=== PATIENT | female | born 1950 | race African-American/Black ===

== ENCOUNTER → 2020-05-17 14:07 | Outpatient (CLI) | payer MEDICARE, SELFPAY ==
[2020-05-17 13:36] VITALS: BMI 26.4
[2020-05-17 15:16] LABS: Absolute Lymphocyte Count 3.12 X10^3/uL (0.83-4.51); Absolute Neutrophil Count 6.7 X10^3/uL (2.0-7.7); Basophil# 0.07 X10^3/uL; Basophil% 0.6 % (0-1); Eosinophil# 0.07 X10^3/uL; Eosinophils% 0.6 % (0-5); Hematocrit 42.2 % (37-47); Hemoglobin 14.7 g/dL (12.0-15.0); Lymphocyte # 3.12 X10^3/ul (4.0); Lymphocyte % 28.9 % (19-41); Mean Corp Hgb Conc 34.8 g/dL (32-36); Mean Corpuscular Hgb 31.4 pg (27.0-32.0); Mean Corpuscular Volume 90.2 fL (81-99); Monocyte# 0.83 X10^3/uL; Monocyte% 7.7 % (0-10); NRBC Flagged by Analyzer 0 % (0-5); Neutrophil # 6.66 X10^3/uL (2.7-7.7); Neutrophil % 61.7 % (47-70); Platelet Count 299 K/mm3 (150-450); RBC Distribution Width CV 14.5 % (11.6-14.6); RBC Distribution Width SD 47.8 fl (35.1-43.9); Red Blood Count 4.68 M/mm3 (4.2-5.4); White Blood Count 10.8 K/mm3 (4.4-11.0)
[2020-05-17 16:00] LABS: ALB/GLOB Ratio 0.8 RATIO (0.9-2.4); AST(SGOT) 12 U/L (15-37); Alanine Aminotransfer ALT/SGPT 18 U/L (13-56); Albumin, Serum 3.9 g/dL (3.2-5.0); Alkaline Phosphatase 103 U/L (45-117); Anion Gap 7 (5-15); BUN 11 mg/dL (7-18); BUN/Creat Ratio 9.1 RATIO (10-20); Calcium,Total 9.4 mg/dL (8.5-10.1); Chloride 110 mmol/L (98-107); Cholesterol 255 mg/dL (200); Creatinine, Serum 1.21 mg/dL (0.55-1.02); EST Glomerular Filtration Rate 47 mL/min (>60); Est Glom Filt Rate - Afr Amer 57 mL/min (>60); Globulin 4.8 g/dL (2.2-4.2); Glucose 96 mg/dL (74-106); High Density Lipoprotein 44 mg/dL; Potassium 3.2 mmol/L (3.5-5.1); Protein, Total 8.7 g/dL (6.4-8.2); Sodium Level 142 mmol/L (136-145); Triglycerides 144 mg/dL; Very Low Density Lipoprotein 29 mg/dL (5-40)
== END ==
PROVIDERS: PCP Internal Medicine; Referring Provider Internal Medicine; Visit Provider Internal Medicine
DX: I10 Essential (primary) hypertension (principal)
CPT/HCPCS: 36415; 80053; 80061; 85025

== ENCOUNTER → 2020-06-14 13:48 | Outpatient (CLI) | payer MEDICARE, SELFPAY ==
[2020-06-14 13:21] VITALS: BMI 27.1
[2020-06-14 15:43] LABS: Anion Gap 7 (5-15); BUN 7 mg/dL (7-18); BUN/Creat Ratio 7.9 RATIO (10-20); Chloride 106 mmol/L (98-107); Creatinine, Serum 0.89 mg/dL (0.55-1.02); EST Glomerular Filtration Rate 67 mL/min (>60); Est Glom Filt Rate - Afr Amer 81 mL/min (>60); Glucose 82 mg/dL (74-106); Potassium 3.7 mmol/L (3.5-5.1); Sodium Level 141 mmol/L (136-145); T4 Free Direct 0.99 ng/dL (0.76-1.46)
== END ==
PROVIDERS: PCP Internal Medicine; Referring Provider Internal Medicine; Visit Provider Internal Medicine
DX: I10 Essential (primary) hypertension (principal); E87.6 Hypokalemia; E03.9 Hypothyroidism, unspecified
CPT/HCPCS: 36415; 80048; 84439; 84443

== ENCOUNTER 2020-07-13 09:35 | Inpatient (IN) | payer MEDICARE, MEDICAID, SELFPAY ==
[2020-07-13] VITALS (12 sets, daily range): BP systolic 121–160; BP diastolic 70–89; PULSE 64–81; RESP 15–22; TEMP 35.9–36.7; O2SAT 99–100; BMI 28.0; BMI 27.7; BMI 27.8
--- NOTE | 2020-07-13 09:46 | EKG12_ITS ---
Test Reason : NEURO Blood Pressure : / mmHG Vent. Rate : 065 BPM Atrial Rate : 065 BPM P-R Int : 156 ms QRS Dur : 064 ms QT Int : 434 ms P-R-T Axes : 060 046 047 degrees QTc Int : 451 ms Normal sinus rhythm Normal ECG Confirmed by CORINNE IVAN, DIONICIO ([id number]), industrial editor SHANI AMIN ([id number]) on 07/17/2020 8:28:35 AM Referred By: Confirmed By:DIONICIO SUN MD
--- NOTE | 2020-07-13 09:46 | CT_ITS ---
STUDY: CT BRAIN WITHOUT CONTRAST REASON FOR EXAM: Female, 69 years old. Altered mental status. Stroke alert. RADIATION DOSAGE (If Supplied By Facility): CTDIvol = ( 45 ) mGy, DLP = ( 813 ) mGycm TECHNIQUE: Transaxial CT imaging of the brain was performed without administration of intravenous contrast material. Individualized dose optimization techniques were used for this CT. COMPARISON: None. FINDINGS: There is no acute bleed or infarct. There are mild chronic ischemic changes. The ventricles are normal in configuration. There is no hydrocephalus. The visualized paranasal sinuses are clear. The mastoid air cells are well aerated. There is no skull fracture. CT/STROKE Brain/Head without Cont IMPRESSION: No acute intracranial abnormality. Mild chronic ischemic change. N.B. : The above information has been verbally conveyed by Nithin Lagos MD to MD Junaid, on 07/13/2020 11:01:00 (ET). Electronically Signed: Nithin Lagos MD at 11:01 EDT Tel , Service support ,
--- NOTE | 2020-07-13 09:48 | ED.DCSUM_ITS ---
History of Present Illness Chief Complaint: Neuro S/Sx Informant: Patient Onset: Weeks Context: Sudden Onset Timing: Continuous Quality and Location: Left Facial Droop, Left Face Parasthesia, Slurred Speech Onset: Approximately 1 week ago Current Severity: Mild Maximum Severity: Mild Worsened by: Nothing Relieved by: Nothing Associated Symptoms: Negative for: Headache, Nausea, Vomiting, Chest Pain Narrative: Patient is a 69-year-old woman with history of hypertension, hypercholesterolemia, and thyroid disease who presents because of persistent left-sided facial numbness, slurred speech and facial droop. She denies paresthesia, anesthesia or motor weakness upper or lower extremities. She denies headache. She denies double vision or blurred vision. She denies history of trauma. She is not on an anticoagulant. She denies cardiac, respiratory, GI or urologic symptoms. Prior similar symptoms: No Recent Illness/Hospitalization: No - Past Medical History (1) History of hypertension Status: Acute (2) History of hypercholesterolemia Status: Acute (3) History of thyroid disease Status: Acute Past Medical History - Allergies and Home Meds Allergies/Adverse Reactions: Allergies naproxen [From Anaprox] Allergy (Verified 07/13/20 09:37) Hives SULFUR Allergy (Uncoded 07/13/20 09:37) Hives Prior records reviewed: Yes Surgical History: noncontributory Lives: Alone Smoking Status: Current every day smoker Alcohol: None Drugs: None Review of Systems General: Denies: Chills, Fever, Malaise Eyes: Denies: Visual changes - bilaterally, Blurred Vision - bilaterally, Diplopia ENT: Denies: Bilateral ear pain, Rhinorrhea, Sore throat Cardiovascular: Denies: Chest pain, Palpitations Respiratory: Denies: Dyspnea, Cough, Dyspnea on exertion Gastrointestinal: Denies: Abdominal pain, Vomiting Genitourinary: Denies: Dysuria, Hematuria, Frequency Musculoskeletal: Denies: Myalgias, Arthralgias, Neck pain, Back pain, Swelling, Extremity Pain, -, - Skin: Denies: Rash, Wounds Neurological: Reports: Weakness, - - Slurred speech Psych: Denies: Depression, Anxiety Endocrine: Denies: Polyuria, Polydipsia Hematologic: Denies: Easy bruising, Easy bleeding Allergy: Denies: Uticaria, Swelling of the mouth, Swelling of the tongue STROKE Vital Signs/Narrative: Vital Signs Temp Pulse Resp BP Pulse Ox 04/24/21 09:37 97 F L 74 16 137/72 H 99 Inital Vital Signs reviewed: Yes - NIHSS Initial 1a Level of Consciousness: 0 1b LOC Questions (Score 2 if aphasic/stupor): 0 1c LOC Commands (Only score 1st attempt): 0 2 Best Gaze (If aphasic, use reflexive mvmts.): 0 3 Visual: 0 4 Facial Palsy: 1 5 Motor Arm Right (UN = amputation/fusion): 0 5 Motor Arm Left: 1 6 Motor Leg Right: 0 6 Motor Leg Left: 1 7 Limb ataxia (Only + if out of proportion): 0 8 Sensory (Aphasia/stupor=0 or 1, coma=2): 0 9 Best Language: 0 10 Dysarthria (mute, coma=2, intubated=UN): 1 11 Extinction and Inattention (only scored if +): 0 Total Score: 4 General: Well nourished, Well developed Head: Normocephalic, Atraumatic Eyes: Perrl, EOMI, - - Is no central nystagmus and there is no APD.. Negative for: Pale conjunctiva, Scleral icterus ENT: Moist mucous membranes, No rhinorrhea Neck: Supple, Nontender, No lymphadenopathy, No JVD Cardiovascular: Regular rate, Regular rhythm, No murmurs, Normal S1, Normal S2 Respiratory: No distress, CTA bilaterally, Chest nontender Abdomen: Soft, Nontender, Nondistended, Normal bowel sounds Rectal: Deferred Back: Nontender, Normal Inspection Extremities: Nontender, No edema Skin: Normal color, No rash, No Trauma. Negative for: Cyanosis, Diaphoresis, Jaundice Neurological: Alert, Oriented x3, Normal Sensation. Negative for: Cranial nerves II-XII grossly intact, Normal Strength Psychological: Normal affect Diagnostic/Tx/Re-eval Impressions Brain CT 07/13/20 09:46 IMPRESSION: No acute intracranial abnormality. Mild chronic ischemic change. N.B. : The above information has been verbally conveyed by Nithin Lagos MD to MD Junaid, on 07/13/2020 11:01:00 (ET). Electronically Signed: Nithin Lagos MD at 11:01 EDT Tel , Service support , ADDENDUM: 07/13/20 1108 IMPRESSION: No acute intracranial abnormality. Mild chronic ischemic change. N.B. : The above information has been verbally conveyed by Nithin Lagos MD to MD Junaid, on 07/13/2020 11:01:00 (ET). Electronically Signed: Nithin Lagos MD at 11:01 EDT Tel , Service support , 07/13/20 09:46 STROKE Brain/Head without Cont [CT] Stat Laboratory Results 07/13/20 07/13/20 07/13/20 09:46 10:25 10:25 WBC 8.3 RBC 3.96 L Hgb 12.5 Hct 37.1 MCV 93.7 MCH 31.6 MCHC 33.7 RDW Std Deviation 52.8 H RDW Coeff of [place] 15.4 H Plt Count 253 MPV 10.5 Immature Gran % (Auto) 0.600 Neut % (Auto) 56.2 Lymph % (Auto) 30.3 [place] % (Auto) 8.6 Eos % (Auto) 3.5 Baso % (Auto) 0.8 Absolute Neuts (auto) 4.7 Absolute Lymphs (auto) 2.51 Nucleated RBC % 0 PT 12.6 INR 1.0 APTT 30.7 Sodium Potassium Chloride Carbon Dioxide Anion Gap BUN Creatinine Estim Creat Clear Calc Est GFR (MDRD) Af Amer Est GFR (MDRD) Non-Af BUN/Creatinine Ratio Glucose Calcium Troponin I POC Glucose 94 07/13/20 10:25 WBC RBC Hgb Hct MCV MCH MCHC RDW Std Deviation RDW Coeff of [place] Plt Count MPV Immature Gran % (Auto) Neut % (Auto) Lymph % (Auto) Daw[place] % (Auto) Eos % (Auto) Baso % (Auto) Absolute Neuts (auto) Absolute Lymphs (auto) Nucleated RBC % PT INR APTT Sodium 138 Potassium 4.2 Chloride 106 Carbon Dioxide 28.0 Anion Gap 4 L BUN 11 Creatinine 0.93 Estim Creat Clear Calc 54.20 Est GFR (MDRD) Af Amer 77 Est GFR (MDRD) Non-Af 64 BUN/Creatinine Ratio 11.8 Glucose 84 Calcium 8.6 Troponin I < 0.015 POC Glucose Laboratory results are unremarkable. CT reveals small vessel disease. Patient will require admission for work-up of stroke. - EKG Initial EKG Interpretation: Sinus Rhythm - The EKG is normal with a normal sinus rhythm and a ventricular rate of 65. FL interval is 156 ms. QS duration is 64 ms. QT duration 434 ms and the axis is normal. - Medical Decision Making Stroke Team Activated: No - Some started approximately 1 week ago Reviewed Inclusion/Exclusion criteria: No - Patient outside the window Was Patient considered for Endovascular Intervention?: No IV Alteplase (t-PA) Administered: No Not given: Patient refusal: No Presents with symptoms consistent right hemispheric stroke. Stroke work-up was initiated. ED Disposition - Plan for ED Patient: Disposition: Acute Care Hospital [facility] Diagnosis: CVA (cerebral vascular accident), History of hypercholesterolemia, History of hypertension, History of thyroid disease
[2020-07-13 09:51] LABS: Bedside Glucose 94 mg/dL (70-110)
[2020-07-13 10:55] LABS: Absolute Lymphocyte Count 2.51 X10^3/uL (0.83-4.51); Absolute Neutrophil Count 4.7 X10^3/uL (2.0-7.7); Basophil# 0.07 X10^3/uL; Basophil% 0.8 % (0-1); Eosinophil# 0.29 X10^3/uL; Eosinophils% 3.5 % (0-5); Hematocrit 37.1 % (37-47); Hemoglobin 12.5 g/dL (12.0-15.0); Lymphocyte # 2.51 X10^3/ul (0.83-4.51); Lymphocyte % 30.3 % (19-41); Mean Corp Hgb Conc 33.7 g/dL (32-36); Mean Corpuscular Hgb 31.6 pg (27.0-32.0); Mean Corpuscular Volume 93.7 fL (81-99); Mean Platelet Vol. 10.5 fl (6.2-12.0); Monocyte# 0.71 X10^3/uL; Monocyte% 8.6 % (0-10); NRBC Flagged by Analyzer 0 % (0-5); Neutrophil # 4.65 X10^3/uL (2.7-7.7); Neutrophil % 56.2 % (47-70); Platelet Count 253 K/mm3 (150-450); RBC Distribution Width CV 15.4 % (11.6-14.6); RBC Distribution Width SD 52.8 fl (35.1-43.9); Red Blood Count 3.96 M/mm3 (4.2-5.4); White Blood Count 8.3 K/mm3 (4.4-11.0)
[2020-07-13 11:05] LABS: Prothrombin Time (Protime)PT. 12.6 SECONDS (11.7-14.9)
[2020-07-13 11:06] LABS: Partial Thromboplast Time 30.7 Seconds (24.1-36.2)
[2020-07-13 11:12] LABS: Anion Gap 4 (5-15); BUN 11 mg/dL (7-18); BUN/Creat Ratio 11.8 RATIO (10-20); Calcium,Total 8.6 mg/dL (8.5-10.1); Chloride 106 mmol/L (98-107); Creatinine, Serum 0.93 mg/dL (0.55-1.02); EST Glomerular Filtration Rate 64 mL/min (>60); Est Glom Filt Rate - Afr Amer 77 mL/min (>60); Glucose 84 mg/dL (74-106); Potassium 4.2 mmol/L (3.5-5.1); Sodium Level 138 mmol/L (136-145)
--- NOTE | 2020-07-13 11:59 | PCM.HP.STD ---
Problem List (1) Anxiety and depression Status: Chronic (2) History of hypertension Status: Chronic (3) History of hypercholesterolemia Status: Chronic (4) History of thyroid disease Status: Chronic (5) CVA (cerebral vascular accident) Status: Acute History of Present Illness Date of Admission: 07/13/20 Chief Complaint: Slurred speech left-sided facial droop and numbness for 1 week The patient is a 69 year old F with history of hypertension and other comorbidities as mentioned above came to ER for slurred speech, left-sided facial numbness for 1 week. Patient states she also had difficulty in reading and writing, difficulty in recall, expression of his speech. Her speech is fragmented. She was also confused sometimes in last 1 week and could not know what to do. Denies any focal weakness, change in sensation in extremities, dysphagia, loss of vision. Triage vitals in normal limit. EKG in ER shows normal sinus rhythm at 65 bpm, QTC [address] head done in ER shows no acute intracranial abnormality. Past Medical History Past Medical History (Chronic Problems): Chronic Problems History of hypertension (Chronic) History of hypercholesterolemia (Chronic) History of thyroid disease (Chronic) Anxiety and depression (Chronic) Allergies naproxen [From Anaprox] Allergy (Verified 07/13/20 09:37) Hives SULFUR Allergy (Uncoded 07/13/20 09:37) Hives Home Medications: Ambulatory Orders Medication Instructions Recorded Amlodipine [Norvasc] 5 mg PO DAILY 07/13/20 Aripiprazole 5 mg PO DAILY 07/13/20 Atorvastatin Calcium 40 mg PO DAILY 07/13/20 Oxybutynin Chloride [Ditropan Xl] 10 mg PO DAILY 07/13/20 Potassium Chloride 20 meq PO BID 07/13/20 Sertraline HCl 100 mg PO DAILY 07/13/20 traZODone [Desyrel] 100 mg PO QHS 07/13/20 Surgical History: noncontributory Lives: Alone Smoking Status: Current every day smoker Alcohol: None Drugs: None - *Family History Paternal History Items: Hypertension Review of Systems Constitutional: Denies: Chills, Fever, Weight Change HEENT: Denies: Head Aches, Sinus Congestion, Sinus Drainage Cardiovascular: Denies: Chest Pain, Palpitations Respiratory: Denies: Cough, Shortness of breath at rest, Sputum production Gastrointestinal: Denies: Abdominal Pain, Nausea, Vomiting Genitourinary: Denies: Dysuria, Frequency, Hesitancy, Retention, Urgency Musculoskeletal: Denies: Joint Pain, Joint Tenderness Skin: Denies: Rash, Wounds Neurological: Reports: Change in Speech, Slurred speech. Denies: Focal weakness, Numbness, Tingling Psychiatric: Reports: Anxiety, Depression. Denies: Homicidal Ideations, Suicidal Ideations Hematologic/ Lymphatic: Denies: Easy Bruising, Easy Bleeding VTE Information - Inpt Only VTE Present on Admission: No VTE Mechan Device Prophylaxis: None VTE Pharm Prophylaxis ordered?: Yes Patient Problems: Active and Suspected Problems CVA (cerebral vascular accident) (Acute) Objective: General: Alert, Oriented x3, Cooperative HEENT: Atraumatic, PERRLA, EOMI, Normocephalic. No peripheral loss of vision on visual confrontation test Oral: No Gingival or Mucosal Lesions/ Ulcerations Neck: Supple, No JVD, Negative Carotid Bruits Lungs: Air entry equal in bilateral lung bases. No crepitation/rhonchi Cardiovascular: Regular rate, Regular Rhythm, Normal S1, Normal S2, No murmurs Abdomen: Bowel Sounds Present, Soft, Non Tender, Non-Distended : No renal angle tenderness. No suprapubic tenderness. Extremities: No edema, Capillary Refill Less than 3 Seconds Skin: No rashes, No breakdown Musculoskeletal: Bilateral knee arthritis. No Tenderness to Palpation of Joints or Extremities Neurological: NIH 2, left facial paralysis and mild to moderate dysarthria. Muscle strength 5/5 at major joints. Gross sensation equal and symmetrical on both sides. Cerebellar signs negative. Psych/Mental Status: Normal Affect, Appropriate. - Physical Exam Vitals/I&O's: Vital Signs Temp Pulse Resp BP Pulse Ox 97 F L 79 18 129/74 H 99 07/13/20 09:37 07/13/20 11:22 07/13/20 11:22 07/13/20 11:22 07/13/20 11:22 Oxygen Delivery Method Room Air Weight: 173 lb 15.115 oz Body Mass Index (BMI) 28.0 Finger Stick Blood Glucose 94 Laboratory Results 07/13/20 09:46: POC Glucose 94 07/13/20 10:25: WBC 8.3, RBC 3.96 L, Hgb 12.5, Hct 37.1, MCV 93.7, MCH 31.6, MCHC 33.7, RDW Std Deviation 52.8 H, RDW Coeff of [place] 15.4 H, Plt Count 253, MPV 10.5, Immature Gran % (Auto) 0.600, Neut % (Auto) 56.2, Lymph % (Auto) 30.3, [place] % (Auto) 8.6, Eos % (Auto) 3.5, Baso % (Auto) 0.8, Absolute Neuts (auto) 4.7, Absolute Lymphs (auto) 2.51, Nucleated RBC % 0 07/13/20 10:25: PT 12.6, INR 1.0, APTT 30.7 07/13/20 10:25: Sodium 138, Potassium 4.2, Chloride 106, Carbon Dioxide 28.0, Anion Gap 4 L, BUN 11, Creatinine 0.93, Estim Creat Clear Calc 54.20, Est GFR (MDRD) Af Amer 77, Est GFR (MDRD) Non-Af 64, BUN/Creatinine Ratio 11.8, Glucose 84, Calcium 8.6, Troponin I < 0.015 Current Medications Labetalol HCl (Labetalol (Prefilled) 20 Mg/4 Ml) 20 mg IV X1 PRN PRN Reason: BLOOD PRESSURE Assessment/Plan All Active Problems CVA (cerebral vascular accident) (Acute) The patient is a 69 year old F with history of hypertension and other comorbidities as mentioned above came to ER for slurred speech, left-sided facial numbness for 1 week. EKG in ER shows normal sinus rhythm at 65 bpm, QTC [address] head done in ER shows no acute intracranial abnormality. 1. Subacute mostly left sided CVA: Patient is being admitted in PCU. Standard stroke protocol with MRI brain, CT angiogram head and neck and echo. PT, OT and speech evaluation and serial NIH stroke scale. BP and glucose control as per stroke guidelines. After work-up is done, will get neuro consult. On aspirin and a statin. Glucose in normal limit. Fasting profile, TSH and A1c tomorrow a.m. 2. Hypertension: Blood pressure is controlled. Continue Norvasc. 3. Dyslipidemia: Atorvastatin increased to 80 mg daily. 4. History of thyroid disease: Not on thyroid supplement. As mentioned above 5. Anxiety and depression: Patient on omeprazole, sertraline trazodone Continued 6. Chronic urine incontinence: Patient on oxybutynin continued VTE prophylaxis: Lovenox 40 mg subcu daily. Living will/advanced directive/end of life care: Patient does not have living will or advanced directive. Her son is power of station mechanic helper for health. After discussion of benefits/risks procedures involved with full code, DNR CC arrest and DNR CC, the patient opted for full code. Patient does want artificial life support including intubation, tube feed, ventilator and/chest compression, central venous catheter, vasopressor and DC shock if needed Total time spent in [id number] encounter in discussion of advanced directive 16 minutes. Inpatient E&M: 59960 Init Hosp L3 Procedures: 64935 Advncd Care Plan 30 Min
--- NOTE | 2020-07-13 13:08 | CT_ITS ---
We are attempting to reach an attending provider to discuss findings. An addendum with communication details will be sent when the communication is complete. STUDY: CTA HEAD AND NECK WITH CONTRAST REASON FOR EXAM: Female, 69 years old. Neuro deficit, acute, stroke suspected No further history or location of neural deficit provided. RADIATION DOSAGE (If Supplied By Facility): CTDIvol = ( 19.90 ) mGy, DLP = ( 689.18 ) mGycm TECHNIQUE: CT angiography was performed with a multi-detector CT scanner. Data acquisition was obtained from the skull base through the vertex following intravenous administration of IV 100mL [id number]-[id number]. MIP images were reconstructed from the axial data set. Post-processing of the angiographic images was performed, with multiplanar reformation and 3D reconstruction. Individualized dose optimization techniques were used for this CT. COMPARISON: CT scan head July 14, 2019 FINDINGS: Normal bilateral petrous carotid arteries. There is calcified plaque formation of the right cavernous carotid artery, with a mild stenosis (less than 50%). There is calcified plaque formation of the left cavernous carotid artery, with a mild stenosis (less than 50%). Normal right A1 segments of the anterior cerebral artery. Normal left A1 segments of the anterior cerebral artery. Normal intact anterior communicating artery (ACOM). Normal bilateral A2 segments of the anterior cerebral arteries. Normal right M1 and M2 segments of the middle cerebral arteries, with a normal M1 bifurcation. There is a mild to moderate narrowing of the left side into segments compared to the left. There is also a narrowed appearance of the superior branch of the left into. There is non-visualization of the right posterior communicating artery (PCOM). May be a subtle hypoplastic left-sided P-comm. Normal bilateral vertebral arteries. Normal basilar artery with a normal basilar bifurcation. The visualized bilateral superior cerebellar (SCA) arteries are normal. Normal bilateral P1, P2 and visualized P3 segments of the posterior cerebral arteries. There is no demonstrated aneurysm of the [place]. There is mild atrophy chronic involutional change. AORTIC ARCH: There is partial calcification of the aortic arch. Normal origins of the brachiocephalic, left common carotid, and left subclavian arteries. RIGHT CAROTID ARTERIES: There is atherosclerotic tortuous elongation of the right common carotid artery. There is visualized plaque formation. There is less than 50% stenosis of the right internal carotid artery at its origin. There is moderate atherosclerotic plaque formation of the origin of the right internal carotid artery with an estimated stenosis of 50-69% stenosis. Normal visualized cervical portion of the right internal carotid artery. Normal origin of the right external carotid artery (ECA). LEFT CAROTID ARTERIES: There is atherosclerotic tortuous elongation of the left common carotid artery. There is mild atherosclerotic plaque formation with minimal narrowing of the left carotid bulb. There is mild atherosclerotic plaque formation of the origin of the left internal carotid artery with less than 50% cross sectional diameter stenosis. Normal visualized cervical portion of the left internal carotid artery. Normal origin of the left external carotid artery (ECA). VERTEBRAL ARTERIES: Normal bilateral vertebral arteries. There is mild inhomogeneity of the mid right thyroid. There is degenerative change within the cervical spine. There is visualized poor dentition with multiple periodontal abscesses. CT/STROKE CTA Head AND Neck W/Con IMPRESSION: Less than 50% stenosis of the bilateral internal carotid arteries. There is atherosclerotic disease of the visualized arch of the aorta. Mildly inhomogeneous right thyroid recommend follow-up ultrasound. There is subtle mild narrowing of the left side M2 segment compared to the right suggesting mild to moderate stenosis. Could consider follow-up MRI MRA for further evaluation. Electronically Signed: Brunilda Mcneal MD at 15:00 EDT Tel , Service support ,
[2020-07-13 13:18] LABS: Magnesium 2.1 mg/dL (1.6-2.6)
[2020-07-13] MEDS: 0.9% Normal Saline 1,000 ML 75 ML IV (14:56)
[2020-07-13] MEDS: Enoxaparin 40 MG/0.4 ML Syringe SC (14:59)
[2020-07-13] MEDS: Aspirin 81 MG TAB.CHEW PO (14:59)
[2020-07-13] MEDS: Atorvastatin Calcium 80 MG Tablet PO (21:30)
[2020-07-14] VITALS (9 sets, daily range): BP systolic 143–149; BP diastolic 74–86; PULSE 62–76; RESP 15–18; TEMP 36.2–36.6; O2SAT 97–100
[2020-07-14 05:51] LABS: Absolute Lymphocyte Count 2.78 X10^3/uL (0.83-4.51); Absolute Neutrophil Count 4.3 X10^3/uL (2.0-7.7); Basophil# 0.06 X10^3/uL; Basophil% 0.7 % (0-1); Eosinophils% 3.7 % (0-5); Hematocrit 38.1 % (37-47); Lymphocyte # 2.78 X10^3/ul (0.83-4.51); Lymphocyte % 34.2 % (19-41); Mean Corp Hgb Conc 34.1 g/dL (32-36); Mean Corpuscular Hgb 31.1 pg (27.0-32.0); Mean Corpuscular Volume 91.1 fL (81-99); Mean Platelet Vol. 10.1 fl (6.2-12.0); Monocyte# 0.63 X10^3/uL; Monocyte% 7.7 % (0-10); NRBC Flagged by Analyzer 0 % (0-5); Neutrophil # 4.33 X10^3/uL (2.7-7.7); Neutrophil % 53.3 % (47-70); Platelet Count 248 K/mm3 (150-450); RBC Distribution Width CV 14.7 % (11.6-14.6); RBC Distribution Width SD 49.2 fl (35.1-43.9); Red Blood Count 4.18 M/mm3 (4.2-5.4); White Blood Count 8.1 K/mm3 (4.4-11.0)
[2020-07-14 06:17] LABS: Cholesterol 160 mg/dL (200); High Density Lipoprotein 52 mg/dL; Thyroid Stim Hormone (TSH) 3.83 uIU/mL (0.358-3.74); Triglycerides 102 mg/dL; Very Low Density Lipoprotein 20 mg/dL (5-40)
--- NOTE | 2020-07-14 08:00 | MRI_ITS ---
STUDY: MRI BRAIN WITHOUT CONTRAST REASON FOR EXAM: Female, 69 years old. Stroke, slurred speech -- confusion, facial droop, left side TECHNIQUE: Standardized multiplanar fat and water weighted pulse sequences were obtained. COMPARISON: CT head without contrast 07/13/2020. FINDINGS: No diffusion restriction throughout the brain parenchyma. No focal signal abnormalities throughout the brain parenchyma in all of the pulse sequences. Normal size of the ventricles and extra-axial spaces for the patient''s age. Normal white matter tracts of the supratentorial brain. Normal bilateral basal ganglia. Normal thalami. There is no extra-axial fluid accumulation. Normal flow voids within the major intracranial circulation suggesting patency by spin echo criteria. Normal sella turcica, pituitary gland, infundibular stalk, optic chiasm and hypothalamus. Normal tectal plate and pineal gland. Normal midbrain, jean carlos and medulla. Normal cerebellum. Normal basal cisterns. Normal bilateral temporal bones. Normal bilateral internal auditory canals. No demonstrated orbital abnormality, within the constraints of a routine brain study. Normal visualized paranasal sinuses. Normal calvarium and skull base. Normal visualized soft tissue structures. Normal visualized upper cervical spine. MRI/Brain without Contrast IMPRESSION: Normal unenhanced MRI of the brain. Electronically Signed: Arun Neely MD at 10:33 EDT , Service support ,
[2020-07-14] MEDS: Enoxaparin 40 MG/0.4 ML Syringe SC (08:12)
[2020-07-14] MEDS: Aspirin 81 MG TAB.CHEW PO (08:12)
[2020-07-14] MEDS: Sertraline 100 MG Tablet PO (08:12)
[2020-07-14] MEDS: amLODIPine 5 MG Tablet PO (08:12)
[2020-07-14] MEDS: Tolterodine Tartrate 2 MG CAP.SA PO (08:12)
[2020-07-14] MEDS: ARIPiprazole 5 MG Tablet PO (08:12)
[2020-07-14] MEDS: Potassium Chloride Oral Tablet 20 MEQ PO (08:12)
[2020-07-14] MEDS: Clopidogrel Bisulfate 75 MG Tablet PO (08:13)
[2020-07-14 08:30] LABS: Hemoglobin A1c 5.3 % (3.8-5.6)
--- NOTE | 2020-07-14 09:54 | TELEMED_ITS ---
[facility] has confirmed receipt of a request for visit. This document confirms receipt of the order initiating the consult. To find the results of the consultation, please view the patient's reports for the scanned Telemed Consult.
--- NOTE | 2020-07-14 11:34 | DCINST_ITS ---
- Discharge Diagnoses Current Active Problems: Current Active and Chronic Problems History of hypertension (Chronic) History of hypercholesterolemia (Chronic) History of thyroid disease (Chronic) CVA (cerebral vascular accident) (Acute) Anxiety and depression (Chronic) You will use the following diet at home:: Cardiac Your food should be the consistency of: Regular Discharge Activity: May Not Drive Call your doctor if you observe: Fever of 101 or Higher, Numbness or Tingling, Change in Color, Inability to urinate, Inability to have a bowel movement, Using more than one pad per hour, Shortness of breath, Dizziness, Fainting spells, Swelling in the ankles, Chest pain, Prolonged hiccoughing, Increased palpitations (irregular heartbeat), Calf discomfort, Uncontrolled pain Allergies/Adverse Reactions: Allergies naproxen [From Anaprox] Allergy (Verified 07/13/20 09:37) Hives SULFUR Allergy (Uncoded 07/13/20 09:37) Hives Medications to take at Discharge Amlodipine [Norvasc] 5 mg PO DAILY 07/13/20 Aripiprazole 5 mg PO DAILY 07/13/20 Atorvastatin Calcium 40 mg PO DAILY 07/13/20 Oxybutynin Chloride [Ditropan Xl] 10 mg PO DAILY 07/13/20 Sertraline HCl 100 mg PO DAILY 07/13/20 traZODone [Desyrel] 100 mg PO QHS 07/13/20 Aspirin [Aspirin, Baby] 81 mg PO DAILY@0800 #30 tab.chew 07/14/20 The following prescriptions were given: Aspirin [Aspirin, Baby] 81 mg PO DAILY@0800 #30 tab.chew Transmission Status: Pending to [facility] [facility] Primary Care Physician: Grace Ybarra MD [Primary Care Provider] - Please follow up with your Primary Care Physician in: in 2-3 week Test Results: Test results from this visit will be discussed in further detail at your follow- up appointment, if applicable. Please Follow Up With: Gama Leal MD When: in 2 weeks
--- NOTE | 2020-07-14 11:36 | PCM.DC.SUM ---
Discharge Date and Diagnosis - Problem List Patient Problems: Active and Suspected Problems CVA (cerebral vascular accident) (Acute) Date of Admission: 07/13/20 Date of Discharge: 07/14/20 - Primary Discharge Diagnosis Acute Problems: Active Problems CVA (cerebral vascular accident) (Acute) - Secondary Discharge Diagnosis Chronic Problems: Chronic Problems History of hypertension (Chronic) History of hypercholesterolemia (Chronic) History of thyroid disease (Chronic) Anxiety and depression (Chronic) Hospital Course and Treatment Imaging Results: 07/14/20 08:00 Brain without Contrast [MRI] Routine Summary of Care Provided: The patient is a 69 year old F with history of hypertension admitted for slurred speech, left-sided facial numbness for about 1 week.EKG in ER shows normal sinus rhythm at 65 bpm, QTC [address] head done in ER shows no acute intracranial abnormality. 1. CVA ruled out. No acute stroke or CVA.: Patient is being admitted in PCU. MRI brain unenhanced reported normal. CTA head and neck shows less than 50% stenosis of bilateral ICA. Basilar cellulitis is a neurologist believes no acute stroke or CVA. Advised to continue with the statin. Patient reported normal limits. TSH 3.83, normal range, UNL less than 4.5. Free T4 1.04. A1c 5.3. Glucose normal. Patient acute change in speech or confusion prior related to antipsychotic medications. 2. Hypertension: Blood pressure is controlled in acceptable range as per her age. Continue Norvasc. 3. Dyslipidemia: Continue atorvastatin 40 g daily. 4. History of thyroid disease: Not on thyroid supplement. As mentioned above 5. Anxiety and depression: Patient on omeprazole, sertraline trazodone Continued 6. Chronic urine incontinence: Patient on oxybutynin continued VTE prophylaxis: Lovenox 40 mg subcu daily. Discharge medication reconciliation done. Discharge follow-up instructions completed. Discharge process discussed with the patient and all questions were answered to patient's satisfaction. Discharge process discussed with patient son present in the room advised follow-up with a neurologist. Total time spent, exact 35 minutes on discharge meds reconciliation, examination, coordination of care with nurses and ancillary staff, review of imaging and blood test and discussion with the patient on follow-up instructions Patient was admitted as inpatient but was discharged because of sooner recovery than expected at time of admission. Clinical Impression(s) from Imaging Studies Brain CT 07/13/20 09:46 IMPRESSION: No acute intracranial abnormality. Mild chronic ischemic change. Head/Neck CTA 07/13/20 13:08 IMPRESSION: Less than 50% stenosis of the bilateral internal carotid arteries. There is atherosclerotic disease of the visualized arch of the aorta. Mildly inhomogeneous right thyroid recommend follow-up ultrasound. There is subtle mild narrowing of the left side M2 segment compared to the right suggesting mild to moderate stenosis. Could consider follow-up MRI MRA for further evaluation. Brain MRI 07/14/20 08:00 IMPRESSION: Normal unenhanced MRI of the brain. Electronically Signed: Arun Neely MD at 10:33 EDT , Service support , Laboratory Results 07/13/20 10:25: Magnesium 2.1 07/14/20 05:30: WBC 8.1, RBC 4.18 L, Hgb 13.0, Hct 38.1, MCV 91.1, MCH 31.1, MCHC 34.1, RDW Std Deviation 49.2 H, RDW Coeff of [place] 14.7 H, Plt Count 248, MPV 10.1, Immature Gran % (Auto) 0.400, Neut % (Auto) 53.3, Lymph % (Auto) 34.2, [place] % (Auto) 7.7, Eos % (Auto) 3.7, Baso % (Auto) 0.7, Absolute Neuts (auto) 4.3, Absolute Lymphs (auto) 2.78, Nucleated RBC % 0 07/14/20 05:30: Triglycerides 102, Cholesterol 160, LDL Cholesterol 88, VLDL Cholesterol 20, HDL Cholesterol 52, TSH 3.83 H 07/14/20 05:30: Hemoglobin A1c 5.3 07/14/20 05:30: Free T4 1.04 Patient Problems: Active and Suspected Problems CVA (cerebral vascular accident) (Acute) Objective: The patient is awake and alert. Heart rate and blood pressure controlled. Pulse ox 98% on room air. Seen by [facility] neurologist and discussed with him. General: Alert, Oriented x3, Cooperative HEENT: Atraumatic, PERRLA, EOMI, Normocephalic. No peripheral loss of vision Oral: No Gingival or Mucosal Lesions/ Ulcerations Neck: Supple, No JVD, Negative Carotid Bruits Lungs: Air entry equal in bilateral lung bases. No crepitation/rhonchi Cardiovascular: Regular rate, Regular Rhythm, Normal S1, Normal S2, No murmurs Abdomen: Bowel Sounds Present, Soft, Non Tender, Non-Distended : No renal angle tenderness. No suprapubic tenderness. Extremities: No edema, Capillary Refill Less than 3 Seconds Skin: No rashes, No breakdown Musculoskeletal: Bilateral knee arthritis. No Tenderness to Palpation of Joints or Extremities Neurological: Mild left-sided facial droop. Speech is normal. Muscle strength 5/5 at major joints. Gross sensation equal and symmetrical on both sides. Psych/Mental Status: Normal Affect, Appropriate. - Physical Exam Vitals/I&O's: Vital Signs Temp Pulse Resp BP Pulse Ox 97.1 F L 75 18 149/86 H 98 07/14/20 08:07 07/14/20 08:07 07/14/20 08:07 07/14/20 08:07 07/14/20 08:07 Oxygen Delivery Method Room Air Weight: 172 lb Body Mass Index (BMI) 27.7 Finger Stick Blood Glucose 94 Intake and Output for Last 24 Hours 07/12/20 07/13/20 07/14/20 23:59 23:59 23:59 Intake Total 240 / 340 1100 / 1100 Balance 240 / 340 1100 / 1100 Laboratory Results 07/13/20 10:25: Magnesium 2.1 07/14/20 05:30: WBC 8.1, RBC 4.18 L, Hgb 13.0, Hct 38.1, MCV 91.1, MCH 31.1, MCHC 34.1, RDW Std Deviation 49.2 H, RDW Coeff of [place] 14.7 H, Plt Count 248, MPV 10.1, Immature Gran % (Auto) 0.400, Neut % (Auto) 53.3, Lymph % (Auto) 34.2, [place] % (Auto) 7.7, Eos % (Auto) 3.7, Baso % (Auto) 0.7, Absolute Neuts (auto) 4.3, Absolute Lymphs (auto) 2.78, Nucleated RBC % 0 07/14/20 05:30: Triglycerides 102, Cholesterol 160, LDL Cholesterol 88, VLDL Cholesterol 20, HDL Cholesterol 52, TSH 3.83 H 07/14/20 05:30: Hemoglobin A1c 5.3 07/14/20 05:30: Free T4 Pending Current Medications Acetaminophen (Acetaminophen 325 Mg Tablet) 650 mg PO Q6H PRN PRN PRN Reason: Pain Score 1-10/Temp > 100.7 F Albuterol Sulfate (Albuterol 2.5 Mg/3 Ml Vial.Neb.) 2.5 mg INHALATION Q2H PRN PRN PRN Reason: SOB/Wheezing Amlodipine Besylate (Amlodipine 5 Mg Tablet) 5 mg PO DAILY [facility] Last Admin: 07/14/20 08:12 Dose: 5 mg Documented by: Aripiprazole (Aripiprazole 5 Mg Tablet) 5 mg PO DAILY [facility] Last Admin: 07/14/20 08:12 Dose: 5 mg Documented by: Aspirin (Aspirin 81 Mg Tab.Chew) 81 mg PO DAILY@0800 [facility] Last Admin: 07/14/20 08:12 Dose: 81 mg Documented by: Atorvastatin Calcium (Atorvastatin Calcium 80 Mg Tablet) 80 mg PO QHS [facility] Last Admin: 07/13/20 21:30 Dose: 80 mg Documented by: Clopidogrel Bisulfate (Clopidogrel Bisulfate 75 Mg Tablet) 75 mg PO DAILY [facility] Last Admin: 07/14/20 08:13 Dose: 75 mg Documented by: Enoxaparin Sodium (Enoxaparin 40 Mg/0.4 Ml Syringe) 40 mg SC DAILY [facility] Last Admin: 07/14/20 08:12 Dose: 40 mg Documented by: Hydralazine HCl (Hydralazine 20 Mg/Ml Vial) 5 mg IV Q30M PRN PRN Reason: to maintain BP goals Iopamidol (Contrast Allergy Safety Check) 0 ml IV X1 [facility] Last Admin: 07/13/20 14:40 Dose: Not Given Documented by: Labetalol HCl (Labetalol (Prefilled) 20 Mg/4 Ml) 10 - 20 mg IV Q10M PRN PRN PRN Reason: to Maintain BP Goals Morphine Sulfate (Morphine 2 Mg/Ml Syringe) 2 mg IV Q3H PRN PRN PRN Reason: Pain Score 6-10 Nitroglycerin (Nitroglycerin (Inpatient Use) 0.4 Mg Tab.Subl) 0.4 mg SL Q5M PRN PRN Reason: CARDIAC/CHEST PAIN Oxycodone HCl (Oxycodone 5 Mg Tablet) 5 mg PO Q4H PRN PRN PRN Reason: Pain Score 4-5 Potassium Chloride (Potassium Chloride Oral Tablet 20 Meq) 20 meq PO DAILY@0800 [facility] Last Admin: 07/14/20 08:12 Dose: 20 meq Documented by: Prochlorperazine Edisylate (Prochlorperazine 10 Mg/2 Ml Vial) 5 mg IV Q4H PRN PRN PRN Reason: Breakthrough Nausea/Vomiting Senna/Docusate Sodium (Senna/Docusate Sodium 1 Tablet) 2 tablet PO BID PRN PRN PRN Reason: Constipation Sertraline HCl (Sertraline 100 Mg Tablet) 100 mg PO DAILY [facility] Last Admin: 07/14/20 08:12 Dose: 100 mg Documented by: Tolterodine Tartrate (Tolterodine Tartrate 2 Mg Cap.Sa) 2 mg PO DAILY [facility] Last Admin: 07/14/20 08:12 Dose: 2 mg Documented by: Trazodone HCl (Trazodone 100 Mg Tablet) 100 mg PO QHS PRN PRN PRN Reason: insomnia Discharge Activity: May Not Drive Call your doctor if you observe: Fever of 101 or Higher, Numbness or Tingling, Change in Color, Inability to urinate, Inability to have a bowel movement, Using more than one pad per hour, Shortness of breath, Dizziness, Fainting spells, Swelling in the ankles, Chest pain, Prolonged hiccoughing, Increased palpitations (irregular heartbeat), Calf discomfort, Uncontrolled pain Home Medications: Medications to take at Discharge Amlodipine [Norvasc] 5 mg PO DAILY 07/13/20 Aripiprazole 5 mg PO DAILY 07/13/20 Atorvastatin Calcium 40 mg PO DAILY 07/13/20 Oxybutynin Chloride [Ditropan Xl] 10 mg PO DAILY 07/13/20 Sertraline HCl 100 mg PO DAILY 07/13/20 traZODone [Desyrel] 100 mg PO QHS 07/13/20 Aspirin [Aspirin, Baby] 81 mg PO DAILY@0800 #30 tab.chew 07/14/20 Following Prescriptions Were Given to Patient: Aspirin [Aspirin, Baby] 81 mg PO DAILY@0800 #30 tab.chew Transmission Status: Received by [facility] Primary Care Physician: Grace Ybarra MD [Primary Care Provider] - Please follow up with your Primary Care Physician in: in 2-3 week Please Follow Up With: Gama Leal MD When: in 2 weeks Medical Necessity - Tobacco Use Smoking Status: Current every day smoker Tobacco Use: Cigarettes Meaningful Use Info Meaningful Use Diagnoses (Choose all that apply): None applicable Inpatient E&M: [id number] [facility]
[2020-07-14 12:24] LABS: T4 Free Direct 1.04 ng/dL (0.76-1.46)
== END 2020-07-14 12:00 | disposition home or self-care (01) | DRG 93 ==
LOC: ED 11:28 → PCU 11:42
PROVIDERS: Admitting Provider Internal Medicine; Emergency Provider Emergency Medicine; PCP Internal Medicine; Visit Provider Internal Medicine
DX: R47.81 Slurred speech (principal); R29.810 Facial weakness; R20.2 Paresthesia of skin; I10 Essential (primary) hypertension; E78.5 Hyperlipidemia, unspecified; E07.9 Disorder of thyroid, unspecified; R32 Unspecified urinary incontinence; F17.210 Nicotine dependence, cigarettes, uncomplicated; F32.9 Major depressive disorder, single episode, unspecified; F41.9 Anxiety disorder, unspecified; Z79.899 Other long term (current) drug therapy
CPT/HCPCS: 70450; 70496; 70498; 70551; 80048; 80061; 82962; 83036; 83735; 84439; 84443; 84484; 85025; 85610; 85730; 93005; 97162; 97166; 99285; 99406; J7030; Q9967; A4216

== ENCOUNTER → 2020-09-30 12:50 | Outpatient (CLI) | payer MEDICARE, MEDICAID, SELFPAY ==
[2020-09-06 14:03] VITALS: BMI 27.1
--- NOTE | 2020-09-30 12:52 | US_ITS ---
STUDY: THYROID ULTRASOUND REASON FOR EXAM: Female, 69 years old. History of thyroid disease -- Mildly inhomogeneous right thyroid TECHNIQUE: Ultrasound evaluation of the thyroid was performed with real-time and static smith-scale imaging. COMPARISON: None. FINDINGS: RIGHT LOBE: The right lobe of the thyroid gland is enlarged and measures 5.8 cm x 2.2 cm x 1.7 cm. There is a homogeneous echotexture. There are 2 adjacent heterogeneous solid nodules in the mid pole of the right lobe of the thyroid. The larger measures 1.3 cm x 1 cm x 0.7 cm. LEFT LOBE: The left lobe of the thyroid gland measures 4.6 cm x 1.8 cm x 1.5 cm. There is a homogeneous echotexture. There are no demonstrated solid, cystic or complex lesions. ISTHMUS: The isthmus measures 3 mm. The regional lymph nodes are normal. US/Thyroid IMPRESSION: 2 adjacent heterogeneous solid nodule in the midpole of the right lobe of the thyroid. The larger nodule measures 1.3 cm x 1 cm x 0.7 cm. Biopsy is recommended. Electronically Signed: Chemo Turk MD at 14:02 EDT , Service support ,
--- NOTE | 2020-09-30 13:14 | EKG12_ITS ---
Test Reason : HTN Blood Pressure : / mmHG Vent. Rate : 065 BPM Atrial Rate : 065 BPM P-R Int : 156 ms QRS Dur : 066 ms QT Int : 424 ms P-R-T Axes : 047 017 032 degrees QTc Int : 440 ms Normal sinus rhythm with sinus arrhythmia Normal ECG Confirmed by LYNETTE IVAN, CASIMIRO ([id number]), news editor SHANI AMIN ([id number]) on 10/01/2020 7:37:56 AM Referred By: Diandra Sullivan Confirmed By:CASIMIRO OJEDA MD
== END ==
PROVIDERS: PCP Internal Medicine; Referring Provider Physician Assistant; Visit Provider Physician Assistant
DX: I10 Essential (primary) hypertension (principal); Z86.39 Personal history of other endocrine, nutritional and metabolic disease
CPT/HCPCS: 76536; 93005

== ENCOUNTER → 2020-10-10 | Outpatient (CLI) | payer MEDICARE, MEDICAID, SELFPAY ==
[2020-10-10 14:03] VITALS: BMI 26.1
--- NOTE | 2020-10-10 14:50 | ASPS_PTH ---
PATIENT: SCOTT MEYER LOC: [facility] U#:[id number] AGE/SX: 69/F ROOM: RE10/10/[address]: Dr. Mahin White MD : 1950 BED: DIS: 10/10/2020 SPEC #: [id number] RECD: 10/11/20 10:15 STATUS: MARIO RALPH #: [id number] ALPHONSE: 10/10/20 14:[address]: Mahin White DEPT: CYTOLOGY RECD BY: Darnell Richmond ENTERED: 10/11/20 11:52 SP TYPE: ASPIRATION OTHR DR: Dr. Grace Ybarra MD Tissues: A - Thyroid gland, NOS B - Thyroid gland, NOS Procedures: Special Stain Group II Cytology Other HEADER OPERATION: Right thyroid fine needle aspiration x2 PRE-OP DIAGNOSIS: Right thyroid nodules TISSUE SUBMITTED: A - Right thyroid nodule mid pole deep slides x8, B - Right thyroid nodule mid pole superficial slides x8 DIAGNOSIS CYTOLOGY A. Fine needle aspiration, right thyroid nodule mid pole deep (smears): Adequate for evaluation. Negative, consistent with benign follicular/colloid nodule. B. Fine needle aspiration, right thyroid nodule mid pole superficial (smears): Adequate for evaluation. Negative, consistent with benign follicular/colloid nodule. AM:viet 10/11/2020 CYTOLOGY STUDY Slides are reviewed. CYTOLOGY GROSS A - Received are eight smears labeled with the patient's name and designated per the requisition as right thyroid nodule mid pole deep. Submitted for staining. B - Received are eight smears labeled with the patient's name and designated per the requisition as right thyroid nodule mid pole superficial. Submitted for staining. / viet 10/11/2020 TC:5 CPT: 81392 x2
== END | disposition home or self-care (01) ==
LOC: LABSPEC 10-11 10:20
PROVIDERS: PCP Internal Medicine; Referring Provider Surgery; Visit Provider Surgery
DX: E04.1 Nontoxic single thyroid nodule (principal)
CPT/HCPCS: 88161; 88313

== ENCOUNTER → 2020-11-01 13:46 | Outpatient (CLI) | payer MEDICARE, MEDICAID, SELFPAY ==
[2020-11-01 12:56] VITALS: BMI 26.9
[2020-11-01 15:26] LABS: Erythrocyte Sedimentation Rate 13 mm/hr (0-30)
[2020-11-01 15:48] LABS: CRP < 2.90 mg/L (0.0-3.0)
[2020-11-03 08:01] LABS: Thyroid Peroxidase AB 11 IU/mL (0-34)
[2020-11-04 16:26] LABS: ANTINUCLEAR ANTIBODIES DIRECT Negative (Negative)
[2020-11-05 16:09] LABS: Cytoplasmic Ab (C-ANCA) <1:20 titer (Neg:<1:20)
[2020-11-06 10:07] LABS: Perinuclear Ab (P-ANCA) <1:20 titer (Neg:<1:20)
== END ==
PROVIDERS: Surgery; PCP Internal Medicine; Referring Provider Internal Medicine; Visit Provider Internal Medicine
DX: L30.9 Dermatitis, unspecified (principal); B19.20 Unspecified viral hepatitis C without hepatic coma; E04.1 Nontoxic single thyroid nodule
CPT/HCPCS: 36415; 85652; 86038; 86140; 86225; 86235; 86256; 86376; 87521

== ENCOUNTER → 2020-12-12 14:29 | Outpatient (CLI) | payer MEDICARE, MEDICAID, SELFPAY ==
--- NOTE | 2020-12-12 14:30 | BD_ITS ---
STUDY: DUAL ENERGY X-RAY ABSORPTIOMETRY / DXA REASON FOR EXAM: Female, 70 years old. Post menopausal TECHNIQUE: Bone Mineral Density (BMD) measurements of lumbar spine and bilateral hips were obtained. COMPARISON: None. FINDINGS: Lumbar Spine (L1-L4): g/cm2 (1.346) / T-score (2.1) / Z-score (4.3) Findings are suggestive of normal bone density with a low fracture risk. Left Femur Total: g/cm2 (0.877) / T-score (-1.0) / Z-score (0.1) Left Femoral Neck: g/cm2 (0.716) / T-score (-1.7) / Z-score (-0.3) Right Femur Total: g/cm2 (0.935) / T-score (-0.6) / Z-score (0.5) Right Femoral Neck: g/cm2 (0.712) / T-score (-1.7) / Z-score (-0.3) BD/Dexa Bone Density Study IMPRESSION: The patient is considered osteopenic as outlined below according to World Kash Organization (WHO) criteria with a moderate fracture risk. Reference Information: The T-score is the number of standard deviations above or below the standard which is normal for young adults at their peak bone mineral density. The World Health Organization (WHO) interprets the T-scores as follows: Above -1 Normal bone density Between -1 and -2.5 Osteopenia Equal to / or below -2.5 Osteoporosis As a practical clinical guideline, osteopenia may be graded as follows: Mild -1 through -1.5 Moderate -1.6 through -2.0 Severe -2.1 through -2.4 The Z-score is the number of standard deviations above or below age-matched controls. A Z-score of less than -1.5 would be considered abnormal. References: 1. NIH Osteoporosis and Related Bone Diseases www osteo.org 2. International Society for Clinical Densitometry www iscd.org 3. National Osteoporosis Foundation www nof.org Electronically Signed: Chemo Turk MD at 14:26 EDT , Service support ,
--- NOTE | 2020-12-12 14:31 | BI_ITS ---
MAMMOGRAPHY - BILATERAL SCREENING REASON FOR EXAM: Female, 70 years old. Routine annual screening examination. PERTINENT HISTORY: Non-contributory. TECHNIQUE: Digital bilateral breast alysia (3D mammographic acquisition) in the CC and MLO projections. 2-D mediolateral oblique (MLO) and craniocaudad (CC) views of both breasts were obtained. CAD: Full Field Digital Mammography with Computer Added Detection was performed. COMPARISON: No comparison mammograms available at this time. If any prior films become available, an addendum to this report can be generated. FINDINGS: Breast Composition: There are scattered areas of fibroglandular density. There are no dominant masses or suspicious calcifications. Small benign-appearing bilateral axillary lymph nodes. No other significant abnormalities are identified. BI/SCRN MAMM (CAD)W/ALYSIA BILAT IMPRESSION: Negative screening mammogram. Yearly followup mammogram recommended. (A) ASSESSMENT CATEGORY: BIRADS Category 2: Benign. A letter regarding these results will be sent to the patient by the facility within 30 days. Approximately 10% of breast cancers are not detected by mammography. A normal mammogram should not delay biopsy of a clinically suspicious abnormality. [id number] Electronically Signed: Chemo Turk MD at 15:40 EDT , Service support ,
== END ==
PROVIDERS: PCP Internal Medicine; Referring Provider Internal Medicine; Visit Provider Internal Medicine
DX: Z12.31 Encounter for screening mammogram for malignant neoplasm of breast (principal); Z78.0 Asymptomatic menopausal state; M85.80 Other specified disorders of bone density and structure, unspecified site
CPT/HCPCS: 77063; 77067; 77080

== ENCOUNTER → 2020-12-17 13:17 | Outpatient (CLI) | payer MEDICARE, MEDICAID, SELFPAY ==
--- NOTE | 2020-12-17 14:13 | CT_ITS ---
STUDY: LOW DOSE CT LUNG CANCER SCREENING REASON FOR EXAM: Female, 70 years old. Lung cancer screening -- 25 pack year history; asymptomatic; current smoker RADIATION DOSAGE (If Supplied By Facility): CTDIvol = ( 2.39 ) mGy, DLP = ( 72.66 ) mGycm TECHNIQUE: No contrast was administered. Low dose technique was utilized (average mAS-38 and kVp 120). 1.25 mm axial source images with a slice interval of 1.25-mm were reconstructed in lung windows. 2.5 mm axial source images with a slice interval of 2.5-mm were reconstructed in lung windows. 5.0 mm axial source images with a slice interval of 5.0-mm were reconstructed in soft tissue windows. Nodule measured using lung windows on PACS and/or independent workstation with automated measurement of minimum and maximum diameter. Nodule measurement reported as average diameter rounded to the nearest whole number. Growth is defined as an increase ins size of greater than 1.5 mm. COMPARISON: None. NODULES: No suspicious nodular densities are seen. Emphysema: Mild degree of emphysematous changes with increased linear markings at the lung bases slightly more prominent at the right lung base suggestive of mild linear atelectasis and/or scarring. Endobronchial lesion: None Aorta: Atherosclerotic plaque formation. Coronary arteries: Coronary artery calcification. Heart: Unremarkable Pulmonary artery: Unremarkable Mediastinal nodes: Small mediastinal lymph nodes. Other chest and abdominal findings: Moderate sized hiatal hernia. CT/Low Dose CT Lung Screening IMPRESSION: Lung-RADS category 2 - Continue annual screening with LDCT in 12 months. IMPORTANT NOTES FOR USE: ACR Lung-RADS Version 1.1 Assessment Categories Release Date: 2018 Category: Coded 0-4 bases on nodule(s) with highest degree of suspicion. Negative screen is defined as categories 1 and 2; a positive screen is defined as categories 3 and 4. Category 3 and 4A nodules that are unchanged on interval CT should be coded as category 2, and individuals returned to screening in 12 months. Category 4X: Category 3 or 4 nodules with additional imaging findings that increase the suspicion of lung cancer, such as spiculation, GGN that doubles in size in 1 year, enlarged lymph notes, etc. Category Modifiers: S (significant finding unrelated to lung cancer) Electronically Signed: Chemo Turk MD at 15:07 EDT , Service support ,
== END ==
PROVIDERS: PCP Internal Medicine; Referring Provider Nurse Practitioner Family; Visit Provider Nurse Practitioner Family
DX: Z12.2 Encounter for screening for malignant neoplasm of respiratory organs (principal); Z87.891 Personal history of nicotine dependence
CPT/HCPCS: 71271

== ENCOUNTER → 2021-10-03 | Outpatient (CLI) | payer MEDICARE, MEDICAID, SELFPAY ==
[2021-10-03 12:17] LABS: Absolute Lymphocyte Count 2.29 X10^3/uL (0.83-4.51); Absolute Neutrophil Count 4.6 X10^3/uL (2.0-7.7); Basophil# 0.04 X10^3/uL; Basophil% 0.5 % (0-1); Eosinophil# 0.16 X10^3/uL; Eosinophils% 2.1 % (0-5); Hematocrit 41.7 % (37-47); Hemoglobin 14.3 g/dL (12.0-15.0); Lymphocyte # 2.29 X10^3/ul (0.83-4.51); Lymphocyte % 29.7 % (19-41); Mean Corp Hgb Conc 34.3 g/dL (32-36); Mean Corpuscular Hgb 31.4 pg (27.0-32.0); Mean Corpuscular Volume 91.6 fL (81-99); Monocyte# 0.57 X10^3/uL; Monocyte% 7.4 % (0-10); NRBC Flagged by Analyzer 0 % (0-5); Neutrophil # 4.62 X10^3/uL (2.7-7.7); Neutrophil % 59.9 % (47-70); Platelet Count 240 K/mm3 (150-450); RBC Distribution Width CV 15.1 % (11.6-14.6); RBC Distribution Width SD 50.9 fl (35.1-43.9); Red Blood Count 4.55 M/mm3 (4.2-5.4); White Blood Count 7.7 K/mm3 (4.4-11.0)
[2021-10-03 12:30] LABS: ALB/GLOB Ratio 0.9 RATIO (0.9-2.4); AST(SGOT) 18 U/L (15-37); Alanine Aminotransfer ALT/SGPT 19 U/L (13-56); Albumin, Serum 3.8 g/dL (3.2-5.0); Alkaline Phosphatase 92 U/L (45-117); Anion Gap 7 (5-15); BUN 11 mg/dL (7-18); BUN/Creat Ratio 10.9 RATIO (10-20); Calcium,Total 9.4 mg/dL (8.5-10.1); Chloride 107 mmol/L (98-107); Cholesterol 220 mg/dL (200); Creatinine, Serum 1.01 mg/dL (0.55-1.02); EST Glomerular Filtration Rate 58 mL/min (>60); Est Glom Filt Rate - Afr Amer 70 mL/min (>60); Globulin 4.4 g/dL (2.2-4.2); Glucose 95 mg/dL (74-106); High Density Lipoprotein 45 mg/dL; Potassium 3.8 mmol/L (3.5-5.1); Protein, Total 8.2 g/dL (6.4-8.2); Sodium Level 140 mmol/L (136-145); T4 Free Direct 1.28 ng/dL (0.76-1.46); Thyroid Stim Hormone (TSH) 0.87 uIU/mL (0.358-3.74); Triglycerides 104 mg/dL; Very Low Density Lipoprotein 21 mg/dL (5-40)
== END | disposition home or self-care (01) ==
LOC: BIMLAB 10:28
PROVIDERS: PCP Internal Medicine; Referring Provider Physician Assistant; Visit Provider Physician Assistant
DX: I10 Essential (primary) hypertension (principal); F32.A Depression, unspecified; F41.9 Anxiety disorder, unspecified; F17.209 Nicotine dependence, unspecified, with unspecified nicotine-induced disorders; Z86.39 Personal history of other endocrine, nutritional and metabolic disease
CPT/HCPCS: 36415; 80053; 80061; 84439; 84443; 85025

== ENCOUNTER → 2022-06-24 | Outpatient (CLI) | payer MEDICARE, MEDICAID, SELFPAY ==
[2022-06-24 16:33] LABS: Absolute Lymphocyte Count 2.18 X10^3/uL (0.83-4.51); Basophil# 0.06 X10^3/uL; Basophil% 0.8 % (0-1); Eosinophil# 0.24 X10^3/uL; Eosinophils% 3.4 % (0-5); Hematocrit 40.5 % (37-47); Hemoglobin 13.8 g/dL (12.0-15.0); Lymphocyte # 2.18 X10^3/ul (0.83-4.51); Lymphocyte % 30.6 % (19-41); Mean Corp Hgb Conc 34.1 g/dL (32-36); Mean Corpuscular Hgb 31.4 pg (27.0-32.0); Mean Platelet Vol. 11.9 fl (6.2-12.0); Monocyte# 0.65 X10^3/uL; Monocyte% 9.1 % (0-10); NRBC Flagged by Analyzer 0 % (0-5); Neutrophil # 3.98 X10^3/uL (2.7-7.7); Platelet Count 208 K/mm3 (150-450); RBC Distribution Width CV 14.2 % (11.6-14.6); RBC Distribution Width SD 47.9 fl (35.1-43.9); White Blood Count 7.1 K/mm3 (4.4-11.0)
[2022-06-24 16:53] LABS: ALB/GLOB Ratio 0.8 RATIO (0.9-2.4); AST(SGOT) 29 U/L (15-37); Alanine Aminotransfer ALT/SGPT 33 U/L (13-56); Alkaline Phosphatase 97 U/L (45-117); Anion Gap 7 (5-15); BUN 8 mg/dL (7-18); BUN/Creat Ratio 7.3 RATIO (10-20); Calcium,Total 9.3 mg/dL (8.5-10.1); Chloride 110 mmol/L (98-107); Cholesterol 174 mg/dL (200); EST Glomerular Filtration Rate 52 mL/min (>60); Est Glom Filt Rate - Afr Amer 63 mL/min (>60); Globulin 4.8 g/dL (2.2-4.2); Glucose 110 mg/dL (74-106); High Density Lipoprotein 53 mg/dL; Potassium 4.2 mmol/L (3.5-5.1); Protein, Total 8.8 g/dL (6.4-8.2); Sodium Level 141 mmol/L (136-145); Triglycerides 63 mg/dL; Very Low Density Lipoprotein 13 mg/dL (5-40)
== END | disposition home or self-care (01) ==
LOC: BIMLAB 14:12
PROVIDERS: PCP Internal Medicine; Visit Provider Internal Medicine
DX: I10 Essential (primary) hypertension (principal)
CPT/HCPCS: 36415; 80053; 80061; 85025

== ENCOUNTER → 2022-07-07 | Outpatient (CLI) | payer MEDICARE, MEDICAID, SELFPAY | END | disposition home or self-care (01) | LOC: SL 13:17 | PROVIDERS: PCP Internal Medicine; Referring Provider Internal Medicine; Visit Provider Internal Medicine | DX: G47.33 Obstructive sleep apnea (adult) (pediatric) (principal) | CPT/HCPCS: 95806 ==

== ENCOUNTER → 2022-12-04 | Outpatient (CLI) | payer MEDICARE, MEDICAID, SELFPAY ==
[2022-12-04 12:08] LABS: Absolute Lymphocyte Count 1.57 X10^3/uL (0.83-4.51); Absolute Neutrophil Count 5.7 X10^3/uL (2.0-7.7); Basophil# 0.04 X10^3/uL; Basophil% 0.5 % (0-1); Eosinophil# 0.25 X10^3/uL; Hematocrit 34.8 % (37-47); Hemoglobin 11.8 g/dL (12.0-15.0); Lymphocyte # 1.57 X10^3/ul (0.83-4.51); Lymphocyte % 18.7 % (19-41); Mean Corp Hgb Conc 33.9 g/dL (32-36); Mean Corpuscular Hgb 31.1 pg (27.0-32.0); Mean Corpuscular Volume 91.6 fL (81-99); Mean Platelet Vol. 11.2 fl (6.2-12.0); Monocyte# 0.74 X10^3/uL; Monocyte% 8.8 % (0-10); NRBC Flagged by Analyzer 0 % (0-5); Neutrophil # 5.74 X10^3/uL (2.7-7.7); Neutrophil % 68.5 % (47-70); Platelet Count 242 K/mm3 (150-450); RBC Distribution Width CV 13.7 % (11.6-14.6); RBC Distribution Width SD 46.4 fl (35.1-43.9); White Blood Count 8.4 K/mm3 (4.4-11.0)
[2022-12-04 12:43] LABS: ALB/GLOB Ratio 0.7 RATIO (0.9-2.4); AST(SGOT) 18 U/L (15-37); Alanine Aminotransfer ALT/SGPT 18 U/L (13-56); Albumin, Serum 3.3 g/dL (3.2-5.0); Alkaline Phosphatase 149 U/L (45-117); Anion Gap 5 (5-15); BUN 40 mg/dL (7-18); BUN/Creat Ratio 27.4 RATIO (10-20); Calcium,Total 8.4 mg/dL (8.5-10.1); Chloride 112 mmol/L (98-107); Creatinine, Serum 1.46 mg/dL (0.55-1.02); EST Glomerular Filtration Rate 38 mL/min (>60); Est Glom Filt Rate - Afr Amer 45 mL/min (>60); Globulin 4.7 g/dL (2.2-4.2); Glucose 105 mg/dL (74-106); Potassium 4.3 mmol/L (3.5-5.1); Sodium Level 139 mmol/L (136-145); T4 Free Direct 1.33 ng/dL (0.76-1.46); Thyroid Stim Hormone (TSH) 0.19 uIU/mL (0.358-3.74)
[2022-12-10 18:07] LABS: T3 Reverse 8.9 ng/dL (9.2-24.1)
== END | disposition home or self-care (01) ==
LOC: BIMLAB 10:51
PROVIDERS: PCP Internal Medicine; Referring Provider Internal Medicine; Visit Provider Internal Medicine
DX: I10 Essential (primary) hypertension (principal); F41.9 Anxiety disorder, unspecified; F32.9 Major depressive disorder, single episode, unspecified; Z13.29 Encounter for screening for other suspected endocrine disorder; R79.89 Other specified abnormal findings of blood chemistry
CPT/HCPCS: 36415; 80053; 84439; 84443; 84482; 85025

== ENCOUNTER → 2022-12-14 | Outpatient (CLI) | payer MEDICARE, MEDICAID, SELFPAY ==
[2022-12-14 17:10] LABS: Erythrocyte Sedimentation Rate 24 mm/hr (0-30)
[2022-12-14 17:56] LABS: CPK Total, Creatine Kinase 65 U/L (26-192); Rheumatoid Factor < 10.0 IU/mL (<15); T4 Free Direct 1.33 ng/dL (0.76-1.46); Thyroid Stim Hormone (TSH) 0.71 uIU/mL (0.358-3.74)
[2022-12-16 11:08] LABS: ANTINUCLEAR ANTIBODIES DIRECT Negative (Negative)
== END | disposition home or self-care (01) ==
LOC: BIMLAB 16:06
PROVIDERS: PCP Internal Medicine; Referring Provider Internal Medicine; Visit Provider Internal Medicine
DX: M62.81 Muscle weakness (generalized) (principal); R52 Pain, unspecified; R53.81 Other malaise; R53.83 Other fatigue; F41.9 Anxiety disorder, unspecified; F32.9 Major depressive disorder, single episode, unspecified
CPT/HCPCS: 36415; 82550; 84439; 84443; 85652; 86038; 86140; 86225; 86235; 86431

== ENCOUNTER 2022-12-30 09:53 | Day surgery (SDC) | payer MEDICARE, MEDICAID, SELFPAY ==
[2022-12-30] VITALS (7 sets, daily range): BP systolic 111–167; BP diastolic 63–106; PULSE 77–103; RESP 16; TEMP 36.1–36.5; O2SAT 100; BMI 23.5
--- NOTE | 2022-12-30 10:17 | H&P.OPEN ---
HPI - General General Date of Service: 12/30/22 HPI Narrative SCOTT MEYER, is a 72 F who presents for screening colonoscopy. Patient did have 1 greater than 10 years ago negative per patient. Patient's brother was diagnosed with colon cancer in his late 50s. Patient has bowel movements about every other day denies any blood. Patient denies any chronic abdominal pain/nausea/vomiting/reflux. [facility] Medical History (Updated 12/28/22 @ 11:33 by Leandra Lopez) Alcohol use Anxiety Arthritis Back pain Colon cancer screening Depression Depressive disorder, not elsewhere classified Dermatitis Dermatitis Encounter for screening for malignant neoplasm of lung in patient with less than 30 pack year smoking history Essential hypertension Family hx of colon cancer Gastric reflux Generalized body aches Health care maintenance Hepatitis C High cholesterol Insomnia Leg cramps Low TSH level Lower back pain Malaise and fatigue Memory impairment Muscle pain Muscle weakness MOHINDER (obstructive sleep apnea) Other and unspecified hyperlipidemia Overactive bladder Screening for thyroid disorder Slurred speech Smoker Thyroid nodule Tobacco use disorder, continuous Urinary frequency Wears glasses Weight loss, non-intentional Home Medications lisinopril 40 mg tablet 40 mg PO DAILY #90 tabs 10/03/21 [Rx Last Taken Unknown] aripiprazole 5 mg tablet 5 mg PO DAILY mental health #30 tabs 12/05/21 [Rx Last Taken Unknown] amlodipine 5 mg tablet 5 mg PO DAILY blood pressure #90 tabs 12/11/21 [Rx Last Taken Unknown] atorvastatin 40 mg tablet 40 mg PO DAILY cholesterol #90 tabs 12/11/21 [Rx Last Taken Unknown] oxybutynin chloride 10 mg tablet,extended release 24 hr (Ditropan XL) 10 mg PO DAILY #60 tabs 12/11/21 [Rx Last Taken Unknown] Dental device mohinder #1 ea 06/25/22 [Rx Last Taken Unknown] sertraline 100 mg tablet 100 mg PO DAILY #90 tabs 08/07/22 [Rx Last Taken Unknown] trazodone 100 mg tablet 100 mg PO QHS insomnia, depression #90 tabs 08/20/22 [Rx Last Taken Unknown] levocetirizine 5 mg tablet (Xyzal) 5 mg PO QPM PRN allergy symptoms #90 tabs 09/15/22 [Rx Last Taken Unknown] Allergy/AdvReac Type Severity Reaction Status Date / Time naproxen [From Anaprox] Allergy Mild Rash Verified 12/30/22 10:16 Sulfa (Sulfonamide Allergy Mild RASH/HIVES Verified 12/30/22 10:16 Antibiotics) Family History (Updated 12/17/22 @ 14:04 by Radha Solo) Mother Uterine cancer Colon cancer Father Hypertension Heart disease Colon cancer Brother Colon cancer Uncle Colon cancer Surgical History (Updated 12/28/22 @ 11:33 by Leandra Lopez) H/O: hysterectomy History of back surgery History of fusion of lumbar spine Hx of colonoscopy Rectovaginal fistula Social History household members: none housing: apartment current occupational status: unemployed Smoking Status: Current every day smoker tobacco type: cigarettes alcohol intake: current alcohol intake frequency: a few times a month Alcohol type: beer and wine substance use type: does not use caffeine: Yes what type of physical activity do you participate in: walking Past Medical/Surgical History Planned Operation Planned Operative Procedure/s: COLONOSCOPY-OA Previous Hospitalizations/Surgeries HX Hospitalizations: No Any Problems With Anesthesia: No You/Your Family Experience Fever (Hyperthermia) With Anes: No Cholinesterase deficiency: No Cardiovascular Hx Chest Pain within Last 2 months: No Hx of Irregular Heartbeat and/or Afib: No Hx Heart Attack: No Hx Hypertension: Yes (CONTROLLED ON MEDS) Hx Cardiac Surgery/Stents/Etc.: No Hx Pain in Legs when Walking/Leg Cramps: No Respiratory Hx Chronic Obstructive Pulmonary Disease (COPD): No Hx Emphysema: No Hx Sleep Apnea: No Hx Respiratory Tract Infection/Cold (presently): No Do You Snore Loudly (louder than talking or can be heard): Yes Do You Often Feel Tired/ Fatigued/ Sleepy Dring Daytime?: No Has Anyone Observed You Stop Breathing During Sleep?: No Result (for STOP score): Positive Smoking Status: Current every day smoker Gastrointestinal Hx Gastrointestinal Bleed: No Hx Ulcer: Yes Difficulty Chewing/Swallowing: No Hx Unplanned Weight Loss of 20#: No Neurological Hx Seizures: No Hx Multiple Sclerosis: No Hx Parkinson's Disease: No Does patient have nerve stimulator: No Blood Disorder Hx High Cholesterol: Yes Hx Hepatitis: No Hx Cirrhosis: No Hx Anemia: No Hx Blood Disorders: No Genitourinary Hx Renal Disease: No Hx Dialysis: No Musculoskeletal Hx Arthritis: No Hx Rheumatoid Arthritis: No Endocrine Hx Diabetes: No Thyroid Disease: No Psycho/Social Hx Substance Use: No Hx Alcohol Use: Yes (RARE) Hx Anxiety: Yes Hx Depression: Yes Hx Dementia: No Miscellaneous Hx Cancer: No Allergies naproxen [From Anaprox] Allergy (Mild, Verified 12/30/22 10:16) Rash Sulfa (Sulfonamide Antibiotics) Allergy (Mild, Verified 12/30/22 10:16) RASH/HIVES Paternal: Family History (Updated 12/17/22 @ 14:04 by Radha Solo) Mother Uterine cancer Colon cancer Father Hypertension Heart disease Colon cancer Brother Colon cancer Uncle Colon cancer Hypertension Discharge Is Pt Admitted From a Penitentiary, or a Detention: No After D/C, Where Do you Plan to Go: Return Home From the PAT History Number of Risk Factors: 4 Physical Exam Const alert, oriented x3 and no apparent distress HEENT normocephalic and head/scalp atraumatic Resp normal respiratory effort Cardio regular rate GI soft to palpation and non-tender; Negative for non-distended Palpation: Negative for guarding Extremity no clubbing, cyanosis or edema Neuro CN's II-XII intact bilaterally Psych mental status grossly normal Assessment & Plan Assessment/Plan (1) Colon cancer screening: Surgery Risks - Colonoscopy I discussed with the patient the risks of the procedure: Yes Risks Include but are not Limited To: Risks include but are not limited to: Bleeding, perforation requiring further surgery, inability to complete colonoscopy requiring barium enema.
[2022-12-30] MEDS: Lactated Ringers 1,000 ML 15 ML IV (10:23)
--- NOTE | 2022-12-30 10:30 | OP.COLON_ITS ---
Patient Name: Ania Naranjo Procedure Date: 12/30/2022 10:26 AM Date of : 1950 Age: 72 Procedure: Colonoscopy Indications: Diarrhea, Constipation Providers: Rashmi Torres MD Referring MD: Rashmi Torres MD Medicines: Monitored Anesthesia Care Patient Profile: Last Colonoscopy: 2019. Complications: No immediate complications. Procedure: Pre-Anesthesia Assessment: - Prior to the procedure, a History and Physical was performed, and patient medications and allergies were reviewed. The patient's tolerance of previous anesthesia was also reviewed. The risks and benefits of the procedure and the sedation options and risks were discussed with the patient. All questions were answered, and informed consent was obtained. Prior Anticoagulants: The patient has taken no anticoagulant or antiplatelet agents. ASA Grade Assessment: Per anesthesia. After reviewing the risks and benefits, the patient was deemed in satisfactory condition to undergo the procedure. After I obtained informed consent, the scope was passed under direct vision. Throughout the procedure, the patient's blood pressure, pulse, and oxygen saturations were monitored continuously. The colonoscope was introduced through the anus and advanced to the cecum, identified by the appendiceal orifice, ileocecal valve and palpation. The colonoscopy was performed without difficulty. The patient tolerated the procedure well. The quality of the bowel preparation was good. Findings: The perianal and digital rectal examinations were normal. A less than 5 mm polyp was found in the ascending colon. The polyp was sessile. The polyp was removed with a cold biopsy forceps. Resection and retrieval were complete. The exam was otherwise without abnormality on direct and retroflexion views. Impression: - One less than 5 mm polyp in the ascending colon, removed with a cold biopsy forceps. Resected and retrieved. - The examination was otherwise normal on direct and retroflexion views. Recommendation: - Discharge patient to home. - Resume previous diet. - Continue present medications. - Await pathology results. - Repeat colonoscopy in 5-10 years for surveillance based on pathology results. Procedure Code(s): --- Professional --- 25308, PT, Colonoscopy, flexible; with biopsy, single or multiple Diagnosis Code(s): --- Professional --- D12.2, Benign neoplasm of ascending colon R19.7, Diarrhea, unspecified K59.00, Constipation, unspecified CPT copyright 2021 [employer]. All rights reserved. The codes documented in this report are preliminary and upon certified medical coder review may be revised to meet current compliance requirements. MD Rashmi Malik MD 12/30/2022 10:30:35 AM This report has been signed electronically. Number of Addenda: 0 Note Initiated On: 12/30/2022 10:26 AM
--- NOTE | 2022-12-30 10:31 | OP.CCLET_ITS ---
12/30/2022 Grace Ybarra MD [address] [place] [address] [place] [address] Re : Colonoscopy procedure for Ania Jose A Dear Dr. Ybarra This procedure was performed on Friday, December 30, 2022. My impressions and recommendations are as follows: Impressions : - One less than 5 mm polyp in the ascending colon, removed with a cold biopsy forceps. Resected and retrieved. - The examination was otherwise normal on direct and retroflexion views. Recommendations : - Discharge patient to home. - Resume previous diet. - Continue present medications. - Await pathology results. - Repeat colonoscopy in 5-10 years for surveillance based on pathology results. My findings are described in the full procedure note, which is enclosed. If I can be of further assistance, please feel free to contact me at Doctor phone number(s): , Work: . Sincerely, MD Rashmi Malik MD 12/30/2022 10:30:35 AM This report has been signed electronically.
--- NOTE | 2022-12-30 11:00 | COLBX_PTH ---
PATIENT: SCOTT MEYER LOC: [facility] U#:[id number] AGE/SX: 72/F ROOM: RE12/30/[address]: Dr. Rashmi Torres MD : 1950 BED: DIS: 12/30/2022 SPEC #: [id number] RECD: 12/30/22 15:14 STATUS: MARIO RERenea #: [id number] ALPHONSE: 12/30/22 11:[address]: Rashmi Torres DEPT: SURGICAL PATHOLOGY RECD BY: Mariana Alvarado ENTERED: 12/31/22 08:46 SP TYPE: COLON BX TRINA DR: Dr. Grace Ybarra MD Tissues: A - Ascending colon B - Sigmoid colon biopsy Procedures: Surgery Specimen Level IV HEADER OPERATION: Colonoscopy with biopsy - open access PRE-OP DIAGNOSIS: Colon cancer screening TISSUE SUBMITTED: A - Ascending colon, B - Sigmoid MICROSCOPIC DIAGNOSIS A. Ascending colon, biopsy: No pathologic change. B. Sigmoid colon, biopsy: Fragments of tubular adenoma. AM:viet 01/01/2023 MICROSCOPIC DESCRIPTION Slides are reviewed. GROSS DESCRIPTION A - Received in fixative is one container labeled with the patient's name and designated ascending colon. The specimen consists of one irregular fragment of light jauregui soft tissue that measures 0.6 x 0.5 x 0.1 cm. The specimen is totally submitted in one cassette. B - Received in fixative is one container labeled with the patient's name and designated sigmoid. The specimen consists of multiple irregular fragments of light jauregui soft tissue that in aggregate measure 1.0 x 0.3 x 0.1 cm. The specimen is totally submitted in one cassette. / AM:viet 12/31/2022 TC:5 CPT: 49493 x2
== END 2022-12-30 11:48 | disposition home or self-care (01) ==
LOC: EN 09:58 → AC 10:00
PROVIDERS: PCP Internal Medicine; Referring Provider Internal Medicine; Visit Provider Surgery
PROC: 0DJD8ZZ Inspection of Lower Intestinal Tract, Via Natural or Artificial Opening Endoscopic (ICD-10-PCS; CPT 45378; principal; 2022-12-30 10:55)
DX: Z12.11 Encounter for screening for malignant neoplasm of colon (principal); F17.210 Nicotine dependence, cigarettes, uncomplicated; Z80.0 Family history of malignant neoplasm of digestive organs; K63.5 Polyp of colon; E78.00 Pure hypercholesterolemia, unspecified; I10 Essential (primary) hypertension; D12.5 Benign neoplasm of sigmoid colon; Z79.899 Other long term (current) drug therapy; K21.9 Gastro-esophageal reflux disease without esophagitis
CPT/HCPCS: 45380; 88305; J7120; J2405

== ENCOUNTER → 2023-01-07 | Outpatient (CLI) | payer MEDICARE, MEDICAID, SELFPAY ==
--- NOTE | 2023-01-07 07:22 | BI_ITS ---
MAMMOGRAPHY - BILATERAL SCREENING REASON FOR EXAM: Female, 72 years old. Routine annual screening examination. PERTINENT HISTORY: Non-contributory. TECHNIQUE: Digital bilateral breast alysia (3D mammographic acquisition) in the CC and MLO projections. 2-D mediolateral oblique (MLO) and craniocaudad (CC) views of both breasts were obtained. CAD: Full Field Digital Mammography with Computer Added Detection was performed. COMPARISON: Comparison is made with prior study December 12, 2020. FINDINGS: Breast Composition: There are scattered areas of fibroglandular density. There are no dominant masses or suspicious calcifications. Stable small benign appearing bilateral axillary lymph nodes. No other significant abnormalities are identified. There has been no significant change since the prior study. BI/SCRN MAMM (CAD)W/ALYSIA BILAT IMPRESSION: Stable bilateral screening mammogram. Yearly follow-up mammogram recommended. (A) ASSESSMENT CATEGORY: BIRADS Category 2: Benign. A letter regarding these results will be sent to the patient by the facility within 30 days. Approximately 10% of breast cancers are not detected by mammography. A normal mammogram should not delay biopsy of a clinically suspicious abnormality. [id number] Electronically Signed: Chemo Turk MD at 14:38 EDT ,
== END | disposition home or self-care (01) ==
LOC: OPBI 07:21
PROVIDERS: PCP Internal Medicine; Referring Provider Internal Medicine; Visit Provider Internal Medicine
DX: Z12.31 Encounter for screening mammogram for malignant neoplasm of breast (principal)
CPT/HCPCS: 77063; 77067

== ENCOUNTER → 2023-02-18 | Outpatient (CLI) | payer MEDICARE, MEDICAID, SELFPAY ==
--- NOTE | 2023-02-18 07:09 | CT_ITS ---
STUDY: CT ABDOMEN AND PELVIS WITH CONTRAST - URINARY TRACT REASON FOR EXAM: Female, 72 years old. Weight loss RADIATION DOSAGE (If Supplied By Facility): CTDIvol = ( 16.96 ) mGy, DLP = ( 784.39 ) mGycm TECHNIQUE: Oral Readi-CAT and 100mL Isovue-370 IV was administered. Transaxial images were obtained from the dome of the diaphragm to the symphysis pubis subsequent to contrast administration. Multiplanar coronal and sagittal images were reformatted. Individualized Dose Optimization Techniques Were Used For This CT. COMPARISON: Chest CT dated February 18, 2023 FINDINGS: There is a separate dedicated CT report of the chest. Normal liver. Normal gallbladder and extrahepatic biliary system. Normal spleen. Normal pancreas. Normal bilateral adrenal glands. There is a small hiatal hernia. Normal small intestine. There is a moderate amount of stool throughout the colon. There is non-visualization of the appendix. There are peripheral calcifications of the abdominal aorta system with atherosclerosis. No retroperitoneal adenopathy. There are bilateral renal cysts. Normal urinary bladder. There is a supraumbilical fat-containing ventral hernia. There are diffuse degenerative changes of the visualized lumbar spine. There is a levoscoliosis of the thoracic or lumbar spine. Postsurgical changes of L4-L5 with right sided pedicle screws and a posterior spinal alexandre. CT/Abdomen/Pelvis WITH Contrast IMPRESSION: Moderate amount of stool throughout the colon. Hiatal hernia. Atherosclerosis. Degenerative changes of the thoracic and lumbar spine. Electronically Signed: Carolyn Woods MD at 8:17 EST ,
--- NOTE | 2023-02-18 07:09 | CT_ITS ---
STUDY: LOW DOSE CT LUNG CANCER SCREENING REASON FOR EXAM: Female, 72 years old. Lung ca screening RADIATION DOSAGE (If Supplied By Facility): CTDIvol = ( 2.01 ) mGy, DLP = ( 59.42 ) mGycm TECHNIQUE: No contrast was administered. Low dose technique was utilized (average mAS-38 and kVp 120). 1.25 mm axial source images with a slice interval of 1.25-mm were reconstructed in lung windows. 2.5 mm axial source images with a slice interval of 2.5-mm were reconstructed in lung windows. 5.0 mm axial source images with a slice interval of 5.0-mm were reconstructed in soft tissue windows. COMPARISON: 12/17/2020 Emphysema: Mild emphysema. No noncalcified nodule or mass. Right lower lobe linear scar. Endobronchial lesion: None Aorta: Some calcified plaque in the aortic arch but no aortic aneurysm. CORONARY ARTERIES: Coronary artery calcification is seen. Heart: No cardiomegaly. Pulmonary artery: Normal Mediastinal nodes: Normal Other chest and abdominal findings: None CT/Low Dose CT Lung Screening IMPRESSION: Lung-RADS category 1 - Continue annual screening with LDCT in 12 months. IMPORTANT NOTES FOR USE: ACR Lung-RADS Version 1.1 Assessment Categories Release Date: 2018 Category: Coded 0-4 bases on nodule(s) with highest degree of suspicion. Negative screen is defined as categories 1 and 2; a positive screen is defined as categories 3 and 4. Category 3 and 4A nodules that are unchanged on interval CT should be coded as category 2, and individuals returned to screening in 12 months. Category 4X: Category 3 or 4 nodules with additional imaging findings that increase the suspicion of lung cancer, such as spiculation, GGN that doubles in size in 1 year, enlarged lymph notes, etc. Category Modifiers: S (significant finding unrelated to lung cancer) Electronically Signed: Juan Turner MD at 18:58 EST ,
[2023-02-18 07:43] LABS: CREATININE FINGERSTICK < 1.0 mg/dL (0.55-1.02); EGFR FINGERSTICK > 60.0000 mL/min (>60)
== END | disposition home or self-care (01) ==
PROVIDERS: PCP Internal Medicine; Visit Provider Internal Medicine
DX: R63.4 Abnormal weight loss (principal); R68.81 Early satiety; F17.210 Nicotine dependence, cigarettes, uncomplicated
CPT/HCPCS: 71271; 74177; Q9967

== ENCOUNTER → 2023-06-25 | Outpatient (CLI) | payer MEDICARE, MEDICAID, SELFPAY ==
[2023-06-25 15:45] LABS: Absolute Neutrophil Count 3.1 X10^3/uL (2.0-7.7); Basophil# 0.07 X10^3/uL; Basophil% 1.2 % (0-1); Eosinophil# 0.24 X10^3/uL; Eosinophils% 4.1 % (0-5); Hematocrit 38.2 % (37-47); Hemoglobin 12.8 g/dL (12.0-15.0); Lymphocyte % 32.1 % (19-41); Mean Corp Hgb Conc 33.5 g/dL (32-36); Mean Corpuscular Hgb 30.2 pg (27.0-32.0); Mean Corpuscular Volume 90.1 fL (81-99); Monocyte# 0.56 X10^3/uL; Monocyte% 9.5 % (0-10); NRBC Flagged by Analyzer 0 % (0-5); Neutrophil # 3.13 X10^3/uL (2.7-7.7); Neutrophil % 52.8 % (47-70); Platelet Count 259 K/mm3 (150-450); RBC Distribution Width CV 15.2 % (11.6-14.6); RBC Distribution Width SD 50.1 fl (35.1-43.9); Red Blood Count 4.24 M/mm3 (4.2-5.4); White Blood Count 5.9 K/mm3 (4.4-11.0)
[2023-06-25 16:08] LABS: ALB/GLOB Ratio 0.8 RATIO (0.9-2.4); AST(SGOT) 45 U/L (15-37); Alanine Aminotransfer ALT/SGPT 45 U/L (13-56); Albumin, Serum 3.4 g/dL (3.2-5.0); Alkaline Phosphatase 117 U/L (45-117); Anion Gap 4 (5-15); BUN 7 mg/dL (7-18); BUN/Creat Ratio 6.9 RATIO (10-20); Calcium,Total 8.6 mg/dL (8.5-10.1); Chloride 112 mmol/L (98-107); Creatinine, Serum 1.02 mg/dL (0.55-1.02); EST Glomerular Filtration Rate 57 mL/min (>60); Est Glom Filt Rate - Afr Amer 69 mL/min (>60); Globulin 4.4 g/dL (2.2-4.2); Glucose 95 mg/dL (74-106); Potassium 4.5 mmol/L (3.5-5.1); Protein, Total 7.8 g/dL (6.4-8.2); Sodium Level 141 mmol/L (136-145)
== END | disposition home or self-care (01) ==
PROVIDERS: PCP Internal Medicine; Referring Provider Internal Medicine; Visit Provider Internal Medicine
DX: I10 Essential (primary) hypertension (principal); F41.9 Anxiety disorder, unspecified; F32.9 Major depressive disorder, single episode, unspecified
CPT/HCPCS: 36415; 80053; 85025

== ENCOUNTER → 2023-11-26 | Outpatient (CLI) | payer MEDICARE, MEDICAID, SELFPAY ==
[2023-11-26 11:57] LABS: Erythrocyte Sedimentation Rate 22 mm/hr (0-30)
[2023-11-26 11:59] LABS: Absolute Neutrophil Count 3.6 X10^3/uL (2.0-7.7); Basophil# 0.08 X10^3/uL; Basophil% 1.1 % (0-1); Eosinophil# 0.13 X10^3/uL; Eosinophils% 1.8 % (0-5); Hematocrit 37.3 % (37-47); Hemoglobin 12.6 g/dL (12.0-15.0); Lymphocyte % 38.2 % (19-41); Mean Corp Hgb Conc 33.8 g/dL (32-36); Mean Corpuscular Hgb 31.3 pg (27.0-32.0); Mean Corpuscular Volume 92.6 fL (81-99); Mean Platelet Vol. 11.8 fl (6.2-12.0); Monocyte# 0.68 X10^3/uL; Monocyte% 9.3 % (0-10); NRBC Flagged by Analyzer 0 % (0-5); Neutrophil # 3.61 X10^3/uL (2.7-7.7); Neutrophil % 49.2 % (47-70); Platelet Count 239 K/mm3 (150-450); RBC Distribution Width CV 14.9 % (11.6-14.6); RBC Distribution Width SD 50.7 fl (35.1-43.9); Red Blood Count 4.03 M/mm3 (4.2-5.4); White Blood Count 7.3 K/mm3 (4.4-11.0)
[2023-11-26 12:38] LABS: ALB/GLOB Ratio 0.8 RATIO (0.9-2.4); AST(SGOT) 23 U/L (15-37); Alanine Aminotransfer ALT/SGPT 20 U/L (13-56); Albumin, Serum 3.5 g/dL (3.2-5.0); Alkaline Phosphatase 120 U/L (45-117); Anion Gap 5 (5-15); BUN 12 mg/dL (7-18); BUN/Creat Ratio 11.8 RATIO (10-20); CRP < 2.90 mg/L (0.0-3.0); Calcium,Total 9.1 mg/dL (8.5-10.1); Chloride 107 mmol/L (98-107); Creatinine, Serum 1.02 mg/dL (0.55-1.02); EST Glomerular Filtration Rate 57 mL/min (>60); Est Glom Filt Rate - Afr Amer 69 mL/min (>60); Globulin 4.5 g/dL (2.2-4.2); Glucose 99 mg/dL (74-106); Potassium 4.3 mmol/L (3.5-5.1); Sodium Level 138 mmol/L (136-145)
== END | disposition home or self-care (01) ==
LOC: BIMLAB 09:58
PROVIDERS: PCP Internal Medicine; Referring Provider Internal Medicine; Visit Provider Internal Medicine
DX: I10 Essential (primary) hypertension (principal); K21.9 Gastro-esophageal reflux disease without esophagitis; R68.81 Early satiety
CPT/HCPCS: 36415; 80053; 85025; 85652; 86140

== ENCOUNTER → 2024-04-14 | Outpatient (CLI) | payer MEDICARE, MEDICAID, SELFPAY ==
[2024-04-14 15:48] LABS: Mucous, Urine 0 SEEN /hpf (<or=2+)
[2024-04-14 17:21] LABS: Color, Urine Yellow (Yellow); Glucose, Dipstick Normal (Normal); Ketone-Dipstick Negative (Negative); Leukocyte Esterase-Dipstick 500 /ul (Negative); Nitrite-Dipstick Negative (Negative); Occult Blood-Urine 10 /ul (Negative); Protein-Dipstick 15 mg/dl (Negative); Urine Bilirubin Dipstick Negative (Negative); Urine Clarity Clear (Clear); Urine Urobilinogen 1 mg/dl (Normal)
[2024-04-14 17:26] LABS: Vitamin B12 454 pg/mL (211-911)
[2024-04-14 17:31] LABS: Thyroid Stim Hormone (TSH) 0.614 uIU/mL (0.358-3.740)
[2024-04-14 17:40] LABS: Bacteria RARE /hpf (None Seen); Red Blood Cells-Urine 0-5 SEEN /hpf (0-5); Squamous Epithelial Cells - UA 0-5 SEEN /hpf (5-10); White Blood Cells 10-25 SEEN /hpf (0-5); White Cell Cast 0-5 SEEN /lpf (None Seen)
== END | disposition home or self-care (01) ==
LOC: BIMLAB 15:34
PROVIDERS: PCP Internal Medicine; Referring Provider Internal Medicine; Visit Provider Internal Medicine
DX: R82.90 Unspecified abnormal findings in urine (principal); R35.0 Frequency of micturition; I10 Essential (primary) hypertension
CPT/HCPCS: 36415; 81001; 82607; 84439; 84443; 87086